=== PATIENT | female | born 1980 ===

== ENCOUNTER 2018-02-14 12:07 | Emergency (ER) | payer MEDICAID, SELFPAY ==
[2018-02-14 13:07] VITALS: BMI 26.6
--- NOTE | 2018-02-14 17:40 | OBHP ---
Datetime: 02/14/2018 12:49 IP Adm Impression: Term, intrauterine IP Chief Complaint Other: Hemorrhoid IP Admit Plan: Discharge home Admit Comment, IP Provider: HPI: This is a 37 yo at 36.3 weeks who presents to L_D for evaluati on of a hemorrhoid. She was seen by her OBGYN about 4 weeks ago when she first noted rectal pain and was diagnosed with an external hemorrhoid and treated with preparation H at that time. The hemorrhoid went away but has recurred twice since that time. Currently she's had rectal pain and scant bleeding for the last few days causing extreme pain and disrupting sleep. She's been trying warm and cold com presses and drinking lots of water as well as taking fiber. No tylenol or other pain medications. Zepeda s report significant constipation with hard stools for the last several weeks. ROS: reports good movement, no vaginal bleeding, no LOF, no ctx History One prior about 12 years ago and 2 SABs PMH Denies, aside from the above PSH Previous unknown knee surgery Family History Non contributory Social Has one living daughter, no alcohol, tobacco or drug use this OBJECTIVE See PE section labs unavailable Assessment/Plan: 37 yo at 36.3 weeks here for painful external hemorrhoids, no signs of throm bosis on exam. These are likely secondary to her constipation in addition to the . She's als o been managing them with sub-optimal pain control at home. We discussed stool softners and increased water intake to help with her BMs as well as Sitz baths and regular Tylenol. She was given a prescri ption for a more potent steroid cream (steroid suppositiories were unavailable as she has no insuranc e). Also recommended an OTC lidocaine cream or gel to help with pain relief. She will follow-up with her primary care doctor for further management. All questions were answered and the patient was comfo rtable with the discharge plan. Agata Mckeon MD OB Fellow Attending Note: Patient was seen and evaluated with maria luisa and I agree with the above. Sasha. Thyroid - PN: Not Done Neurologic - PN: Not Done HEENT - PN: Normal General - PN: Normal IP Fetus A Comments: Reactive NST FHR - Baseline A Provider: 130 Comments, ACOG Physical Exam: Respiratory: nonlabored respirations CV: Regular rate Abdomen: nontender, gravid Rectal: several smaller external hemorrhoids and 1 moderate sized hemorrhoid, they do not appears thrombosed. No gross rectal bleeding. Gestation - Est Wks by US: 36.3 EGA AdmitDate IP: 36.3 IP Chief Complaint: Other NICHD Variability Prov Fetus A: Marked >25bpm NICHD Accel Fetus A IP Provider: 15X15 NICHD Decel Fetus A IP Provider: None
[2018-03-04 02:16] VITALS: BP 106/70; PULSE 102
== END 2018-02-14 12:53 | disposition home or self-care (01) ==
LOC: H.EROB2 12:07
DX: O22.43 Hemorrhoids in pregnancy, third trimester (principal); Z3A.36 36 weeks gestation of pregnancy

== ENCOUNTER 2018-03-18 11:03 | Inpatient (IN) | payer MEDICAID, SELFPAY ==
[2018-03-18] MEDS ORDERED: OXYTOCIN/0.9 % NS 20 UNIT/1,000 ML BAG IV ONE ×2 (11:56→12:29)
[2018-03-18 12:29] VITALS: BMI 28.3
[2018-03-18] MEDS ORDERED: Oxytocin 30 UNIT 30 UNITS/500 ML BAG IV ONE (12:29)
[2018-03-18] MEDS ORDERED: Oxycodone/Acetaminophen 5/325 mg Tab PO PRN ×4 (12:29→16:55)
[2018-03-18] MEDS ORDERED: Benzocaine/Menthol SPRAY TOP PRN ×2 (12:29→16:55)
[2018-03-18 14:24] VITALS: O2SAT 99
[2018-03-18 15:50] LABS: BASO # 0.1 K/uL (0.0-0.2); BASO % 0.5 % (0.0-2.0); EOS % 0.2 % (0.0-4.0); LYMPH # 2.2 K/uL (1.0-4.3); LYMPH % 15.8 % (20.0-40.0); MEAN CELL VOLUME 71.8 fl (81.0-99.0); MEAN CORPUSCULAR HEMOGLOBIN 22.2 pg (27.0-31.0); MEAN PLATELET VOLUME 9.5 fl (7.2-11.7); MONO # 0.8 K/uL (0.0-0.8); MONO % 5.5 % (0.0-10.0); NEUT # 10.9 K/uL (1.8-7.0); RBC 5.37 Mil/uL (3.80-5.20); RED CELL DISTRIBUTION WIDTH 24.8 % (11.5-14.5)
--- NOTE | 2018-03-18 23:12 | OBHP ---
Datetime: 03/18/2018 12:35 IP Adm Impression: Term, intrauterine ; Active labor IP Admit Plan: Admit to unit; Initiate labor protocol Pelvic Type - PN: Adequate Extremities - PN: Normal Abdomen - PN: Normal Back - PN: Normal Breast - PN: Not Done Lungs - PN: Normal Heart - PN: Normal Thyroid - PN: Normal Neurologic - PN: Normal HEENT - PN: Normal General - PN: Normal FHR - Baseline A Provider: 150 Membranes, Provider: Bulging Contraction Comments Provider: Q4mins Gestation - Est Wks by US: 41.0 IP Hx Assessment: The History has been Reviewed and is Current EGA AdmitDate IP: 41.0 Vital Signs Provider: Reviewed; Within Normal Limits IP Indication for Induction: Not Applicable IP Chief Complaint: Uterine contractions NICHD Variability Prov Fetus A: Moderate 6-25bpm NICHD Accel Fetus A IP Provider: 15X15 FHR Category Provider Fetus A: Category I NICHD Decel Fetus A IP Provider: None Dilatation, Provider: 10 Effacement, Provider: 100 Station, Provider: 2 Genitourinary Exam: Normal DTRs - PN: Not Done Datetime: 03/18/2018 12:20 Admit Comment, IP Provider: 37 y/o female at 41.0 wk GA who was sent to DEB after she was f ound to have contractions Q4 mins and CORI of 5.1 by superintendent [employer] while obtaining an BPP and NST this m orning. She endorses good movement. She denies VB/VFL. PNC: [facility] Pmh: denies Obhx: 1 , 2 abortions. Currently GBS+ Famhx: denies PSurg: knee surgery Socialhx: denies etoh, tobacco, recreational drug use Allergies: Cipro, sumatriptan Gen: not in acute distress Heart: RRR, S1 S2 present Lungs: clear to auscultation Abd: gravid, bowel sounds present, nontender, soft SVE: (Dr. Hopson) 10 cm, 100 effaced, 2 station Extremities: no pedal edema, no calf tenderness Neuro: alert/orientedx3 Assessment and Plan: 37 y/o female at 41.0 wk GA intrauterine w/ contractions Q4mins GBS+ Patient is in active labor Admit to L_D CBC/type and screen Penicillin G 5 mu in 50mL NS once Penicillin G 2.5 mu in 50mL NS Q4H 1L LR bolus Can have epidural, anesthesiology consulted Bree Barrett PGYI OB Hospitalist on-call. With PGY1, I saw and examined this patinet. agree with note. MAHNDO Presentation-Admit: Vertex
--- NOTE | 2018-03-18 23:15 | OBADHP ---
Datetime: 03/18/2018 12:35 Pelvic Type - PN: Adequate Extremities - PN: Normal Abdomen - PN: Normal Back - PN: Normal Breast - PN: Not Done Lungs - PN: Normal Heart - PN: Normal Thyroid - PN: Normal Neurologic - PN: Normal HEENT - PN: Normal General - PN: Normal FHR - Baseline A Provider: 150 Membranes, Provider: Bulging Contraction Comments Provider: Q4mins Gestation - Est Wks by US: 41.0 IP Hx Assessment: The History has been Reviewed and is Current Vital Signs Provider: Reviewed; Within Normal Limits IP Chief Complaint: Uterine contractions NICHD Variability Prov Fetus A: Moderate 6-25bpm NICHD Accel Fetus A IP Provider: 15X15 FHR Category Provider Fetus A: Category I NICHD Decel Fetus A IP Provider: None Dilatation, Provider: 10 Effacement, Provider: 100 Station, Provider: 2 Genitourinary Exam: Normal DTRs - PN: Not Done EGA AdmitDate IP: 41.0 IP Adm Impression: Term, intrauterine ; Active labor IP Admit Plan: Admit to unit; Initiate labor protocol Datetime: 03/18/2018 12:20 Admit Comment, IP Provider: 37 y/o female at 41.0 wk GA who was sent to DEB after she was f ound to have contractions Q4 mins and CORI of 5.1 by labor delivery rn while obtaining an BPP and NST this m orning. She endorses good movement. She denies VB/VFL. PNC: [facility] Pmh: denies Obhx: 1 , 2 abortions. Currently GBS+ Famhx: denies PSurg: knee surgery Socialhx: denies etoh, tobacco, recreational drug use Allergies: Cipro, sumatriptan Gen: not in acute distress Heart: RRR, S1 S2 present Lungs: clear to auscultation Abd: gravid, bowel sounds present, nontender, soft SVE: (Dr. Hopson) 10 cm, 100 effaced, 2 station Extremities: no pedal edema, no calf tenderness Neuro: alert/orientedx3 Assessment and Plan: 37 y/o female at 41.0 wk GA intrauterine w/ contractions Q4mins GBS+ Patient is in active labor Admit to L_D CBC/type and screen Penicillin G 5 mu in 50mL NS once Penicillin G 2.5 mu in 50mL NS Q4H 1L LR bolus Can have epidural, anesthesiology consulted WOODY Woods OB Hospitalist on-call. With PGY1, I saw and examined this patinet. agree with note. MAHNDO Presentation-Admit: Vertex Datetime: 02/14/2018 12:49 IP Chief Complaint Other: Hemorrhoid IP Fetus A Comments: Reactive NST Comments, ACOG Physical Exam: Respiratory: nonlabored respirations CV: Regular rate Abdomen: nontender, gravid Rectal: several smaller external hemorrhoids and 1 moderate sized hemorrhoid, they do not appears thrombosed. No gross rectal bleeding.
--- NOTE | 2018-03-18 23:18 | OBDS ---
DELIVERY PERSONNEL Delivery Doctor: Odalys Hopson DO Media Arts Professor: Odalys Monte Resident: Dr Mckeon (fellow), dr. Barrett MATERNAL INFORMATION Delivery Anesthesia: None Maternal Complications: Precipitous Labor (<3hrs) Provider Comments: Normal spontaneous vaginal delivery of live female or female infact, position OA over intact perineum without epidural anesthesia. There was moderate meconium presents after AROM (pe rformed shortly before delivery) and there was no nuchal cord. Infant was placed on maternal abdomen and found to be vigorous, delayed cord clamping was performed. Spontaneous delivery of placenta with 3-vessel cord. See above for laceration repair. EBL appropriate. Mother and in stable conditio n. Agata Mckeon MD OB Fellow OB Hospitalist on-call. With OB Fellow, I attended ... EBL 200cc ... agree with note. MAHNDO LABOR SUMMARY EDC: 03/11/2018 00:00 No. Babies in Womb: 1 Attempted: No Labor Anesthesia: None LABOR INFORMATION Reason for Induction: Not Applicable Onset of Labor: 03/18/2018 05:40 Complete Dilatation: 03/18/2018 11:45 Oxytocin: N/A Group B Beta Strep: Positive Antibiotics # of Doses: 0 Steroids Given: None Reason Steroids Not Administered: Not Applicable MEMBRANES Membranes Rupture Method: Spontaneous Rupture of Membranes: 03/18/2018 12:00 Length of Rupture (hrs): 0.10 Amniotic Fluid Color: Clear Amniotic Fluid Amount: Moderate Amniotic Fluid Odor: Normal STAGES OF LABOR Stage 1 hrs: 6 Stage 1 min: 5 Stage 2 hrs: 0 Stage 2 min: 21 Stage 3 hrs: 0 Stage 3 min: 4 Total Time in Labor hrs: 6 Total Time in Labor min: 30 VAGINAL DELIVERY Episiotomy: None Laceration Extension: Second Degree Laceration Type: Perineal Laceration Repair: Yes Laceration Repair Note: A 2-0 Vicryl was used and the lacerationw was repaired in the usual fashion. Hemostasis was adequate after repair. Initial Vag Sponge Count: 10 Final Vag Sponge Count: 10 Initial Vag Sharps Count: 1 Final Vag Sharps Count: 1 Sponge Count Correct: Yes Sharps Count Correct: Yes BABY A INFORMATION Delivery Date/Time: 03/18/2018 12:06 Method of Delivery: Vaginal Born in Route : No : N/A Forceps: N/A Vacuum Extraction: N/A Shoulder Dystocia : No SHOULDER DYSTOCIA BABY A Infant Delivery Date/Time: 03/18/2018 12:06 PRESENTATION/POSITION BABY A Presentation: Cephalic Cephalic Presentation: Vertex Vertex Position: Left Occipital Anterior Breech Presentation: N/A PLACENTA INFORMATION BABY A Placenta Delivery Time : 03/18/2018 12:10 Placenta Method of Delivery: Spontaneous Placenta Status: Delivered SCORES BABY A Heart Rate 1 min: >100 bpm Resp Effort 1 min: Good Cry Reflex Irritability 1 min: Cough or Sneeze or Pulls Away Muscle Tone 1 min: Active Motion Color 1 min: Body [place], Extremities Blue Resuscitation Effort 1 min: N/A SCORE 1 MIN: 9 Heart Rate 5 min: >100 bpm Resp Effort 5 min: Good Cry Reflex Irritability 5 min: Cough or Sneeze or Pulls Away Muscle Tone 5 min: Active Motion Color 5 min: Body [place], Extremities Blue Resuscitation Effort 5 min: N/A SCORE 5 MIN: 9 INFANT INFORMATION BABY A Gestational Age at Delivery: 41.0 Gestational Status: Term Outcome : Liveborn Condition : Stable Sex: Female IDENTIFICATION/MEDS BABY A ID Band Number: [id number] ID Band Location: Right Leg; Right Arm WEIGHT/LENGTH BABY A Birthweight (gms): 3190 Infant Weight (lb): 7 Weight (oz): 0 Infant Length Inches: 20.00 Length cms: 50.8 CORD INFORMATION BABY A No. Cord Vessels: 3 Nuchal Cord : N/A Cord Blood Taken: N/A Infant Suction: Mouth
[2018-03-19 06:37] LABS: BASO % 0.3 % (0.0-2.0); EOS % 0.3 % (0.0-4.0); HEMOGLOBIN 9.4 g/dL (12.0-16.0); LYMPH # 2.6 K/uL (1.0-4.3); MEAN CELL VOLUME 70.7 fl (81.0-99.0); MEAN CORPUSCULAR HGB CONC 32.5 g/dL (33.0-37.0); MEAN PLATELET VOLUME 8.5 fl (7.2-11.7); MONO # 0.9 K/uL (0.0-0.8); MONO % 7.7 % (0.0-10.0); NEUT # 8.7 K/uL (1.8-7.0); NEUT % 70.7 % (50.0-75.0); RBC 4.08 Mil/uL (3.80-5.20); RED CELL DISTRIBUTION WIDTH 24.2 % (11.5-14.5); WHITE BLOOD COUNT 12.3 K/uL (4.8-10.8)
[2018-03-19] MEDS ORDERED: Multivitamin With Minerals Tab PO SCH (09:00)
[2018-03-19] MEDS: Multivitamin With Minerals Tab PO SCH (09:03)
[2018-03-20] MEDS ORDERED: Influenza Vaccine 60 MCG/0.5 ML SYR (3 yr & up) IM ONE (06:31)
[2018-03-20] MEDS: Multivitamin With Minerals Tab PO SCH (09:55)
--- NOTE | 2018-03-20 11:54 | OBPPN ---
Datetime: 03/20/2018 07:15 PP Pain Prov: Within normal limits PP Nausea Prov: Denies PP Flatus Prov: Yes PP BM Prov: Yes PP Breasts Prov: Not Done PP Heart Prov: Normal PP Lungs Prov: Normal PP Abdomen/Uterus Prov: Normal PP Lochia Prov: Normal PP Vulva/Perineum Prov: Not Done PP CVA Tenderness Prov: Normal PP Extremities Prov: Normal PP C/S Incision Prov: Not Applicable PP Progress Prov: Normal PP Impression Prov: Normal progression PP Plan Prov: Continue present management PP Progress Note Prov: 37 y/o, , s/p on PPD 2. Patient seen and evaluated in AM. Abbdominal pain well controlled with pain meds. Lochia less than menses. Tolerating diet well PO. Passing flatu s and had BM yesterday. Pt is w/o difficulty. Voiding wwll, Ambutlating in room w/o dif ficulties. Denies fever, chills, CP, SOB, Dizziness, N/V. VSS, afebrile GEN: NAD Cardio: RRR, S1S2 Lungs: CTA B/L, no wheezing, rales, rhonchi Abdomen: soft, +tenderness, BS + Ext: No edema, no calf tenderness Neuro/psych: AAOx3 A/P: 37 y/o, , s/p on PPD 2 with normal progression. - Enocurage ambulation - Encourage - Ibuprofen 600 mg for mild pain - Percocet for moderate to severe pain - Sennokot for constipation - Flu vaccine to be given today - Anticipated D/C today 03/20/18 Case discussed with attending Saqib Guerin, PGY1 Attending addendum, I saw and examined the patient myself this morning. I reviewed the resident note above and agree w ith findings and management. DC home today. f/u in 4-6wks . Penelope Blue MD Vital Signs Provider PP: Reviewed; Within Normal Limits
--- NOTE | 2018-03-20 11:57 | OBDCSUM ---
Datetime: 03/20/2018 06:41 Discharged to, Provider: Home Follow up at, Provider: Madi Fontenot Instr Activity: Normal activity; May be up to bathroom; May be up for meals; May Shower Disch Instr Diet: Regular Discharge Instructions, Provider: Routine instructions given Discharge Diagnosis, Provider: Term Delivered Follow up in weeks, Provider: 4-6 wks Disch Referrals: None Contraception discussed, Prov: Yes Disch Activity Restrictions: Nothing in vagina - Kinder, tampons, douche Discharge Comment, Provider: EGA: 39.0 wks Diagnosis: risk factors: GBS+ [place]: 03/18/18 @ 12:06, baby girl, Weight: 3190, /9. Post- Summary: No complications during post- period. Lochia less than menses. Patient is passing flatus and had BM yesterday. She is tolerating regular diet, Fundus firm below umbilicus, able to ambulate w/o any difficulties, voiding well, denies fever, chills, JOHNSON, SOB, N/V, calf pain. Patient will receive flu vaccine today. CBC post-: 9.4/28.8 Discharge Instructions: Encourage PNV 1 tab po daily Ibuprofen 600mg 1 tab prn for mild-mod pain Feosol 325 mg tab PO daily ER precautions: If excessive bleeding or fever without relief from medication, go to ED PT was urged if feeling sad, mood swing, depression, neglect of baby, suicidal thoughts, homicidal thought should go to ER or call 911 for help Follow up with [facility] in 4-6 wks for check up Case discussed with attending Saqib Guerin, PGY1 Attending addendum, I saw and examined the patient myself this morning. I reviewed the resident note above and agree w ith findings and management. DC home today. f/u in 4-6wks . Penelope Blue MD Contraception after Delivery: Undecided
[2018-03-20 23:17] VITALS: BP 90/54; PULSE 91; RESP 20; TEMP 97.6
== END 2018-03-20 15:20 | disposition home or self-care (01) | DRG 373 ==
LOC: H.L&D 11:03 → H.OB/GYN 15:15
PROVIDERS: ADMIT Obstetrics & Gynecology; ATTEND Obstetrics & Gynecology
PROC: 10E0XZZ Delivery of Products of Conception, External Approach (ICD-10-PCS; principal; 2018-03-18)
PROC: 0KQM0ZZ Repair Perineum Muscle, Open Approach (ICD-10-PCS; 2018-03-18)
PROC: 4A1HXCZ Monitoring of Products of Conception, Cardiac Rate, External Approach (ICD-10-PCS; 2018-03-18)
DX: O62.3 Precipitate labor (principal); O48.0 Post-term pregnancy; Z3A.41 41 weeks gestation of pregnancy; Z37.0 Single live birth; O99.824 Streptococcus B carrier state complicating childbirth; O70.1 Second degree perineal laceration during delivery; O77.0 Labor and delivery complicated by meconium in amniotic fluid